=== PATIENT | male | born 1960 ===

== ENCOUNTER → 2016-10-04 15:16 | Outpatient (CLI) | payer OTHER ==
[2016-10-04 15:38] LABS: HEMOGLOBIN A1C 7.7 % (4.8-6.0)
== END | disposition home or self-care (01) ==
LOC: D.LABREF 15:16
PROVIDERS: Orthopaedic Surgery Sports Medicine
DX: M17.11 Unilateral primary osteoarthritis, right knee (principal); E11.9 Type 2 diabetes mellitus without complications; Z11.8 Encounter for screening for other infectious and parasitic diseases